=== PATIENT | female | born 1995 | race Caucasian/White ===

== ENCOUNTER 2016-08-10 16:13 | Emergency (ER) | payer BC ==
--- NOTE | 2016-08-10 16:25 | CPEKG ---
Heart Rate: 78 RR Interval: 769 P-R Interval: 116 QRSD Interval: 80 QT Interval: 364 QTC Interval: 415 P [place]: 53 QRS [place]: 60 T Wave [place]: 31 EKG Severity - NORMAL ECG - EKG Impression: SINUS RHYTHM Electronically Signed By: Shanita Prince 11-Aug-2016 00:40:43
[2016-08-10 16:44] LABS: % IMMATURE GRANULYOCYTES 0.4 % (0.0-1.1); ABSOLUTE IMMATURE GRANULOCYTES 0.06 10^3/uL (0.00-0.10); ADD DIFF? NO; ADD MORPH? NO; ADD SCAN? NO; ATYPICAL LYMPHOCYTE FLAG 0 (0-99); FRAGMENT RBC FLAG 0 (0-99); HEMATOCRIT 40.5 % (38.0-47.0); LEFT SHIFT FLG 0 (0-99); LIPEMIA HEMOLYSIS FLAG 90 (0-99); MEAN CELL HEMOGLOBIN 31.9 pg (27.9-34.1); MEAN CELL HEMOGLOBIN CONCENTR. 34.6 g/dL (32.4-36.7); MEAN CELL VOLUME 92.3 fL (81.5-99.8); MEAN PLATELET VOLUME 10.3 fL (8.7-11.7); PLATELET CLUMPS FLAG 20 (0-99); PLATELET COUNT 272 10^3/uL (150-400); RED BLOOD CELL COUNT 4.39 10^6/uL (4.18-5.33); RED CELL DISTRIBUTION WIDTH 11.7 % (11.5-15.2)
--- NOTE | 2016-08-10 16:45 | EDPHY ---
H & P Stated Complaint: Left sided chest pain since 1pm today, and SOB. Just got off a plane. - Personal History LMP (Females 10-55): Over 28 Days Ago Current Tetanus Diphtheria and Acellular Pertussis (TDAP): Yes - Medical/Surgical History Hx Asthma: No Hx Chronic Respiratory Disease: No Hx Diabetes: No Hx Cardiac Disease: No Hx Renal Disease: No Hx Cirrhosis: No Hx Alcoholism: No Hx HIV/AIDS: No Hx Splenectomy or Spleen Trauma: No Other PMH: med hx- UTI's. surg-tonsilectomy - Social History Smoking Status: Never smoked Time Seen by Provider: 08/10/16 16:15 HPI/ROS: Chief complaint: Chest pain History of present illness: This is a 21-year-old female who presents to the emergency department for evaluation of chest pain. Patient was in her usual state of health until approximately a few hours ago. Patient was flying on a plane from [place] back to [place] where she lives. While landing she started to develop some left-sided chest pain. She describes a sharp pain. It is worse with movement. She has had associated cough. She denies other associated signs or symptoms including no shortness of breath, no fevers or cold symptoms, no pain or swelling in the legs. She has never had similar. Review of systems: A 10 point review of systems was obtained and other than described above was negative (Martin Delgado) - Physical Exam Exam: General Appearance: Alert, nontoxic. Eyes: Pupils equal and round no pallor or injection. ENT, Mouth: Mucous membranes moist. Respiratory: There are no retractions, lungs are clear to auscultation. Cardiovascular: Regular rate and rhythm. Gastrointestinal: Abdomen is soft and nontender, no masses, bowel sounds normal. Neurological: Alert and oriented x4. Strength and sensation intact and symmetrical. Skin: Warm and dry, no rashes. Musculoskeletal: There is tenderness over the left superior sternal border at the costosternal joints. I am able to reproduce or pain. Movement does reproduce pain as well. Extremities are symmetrical, full range of motion. No evidence of DVT. Psychiatric: Patient is oriented X 3, there is no agitation. (Martin Delgado) Constitutional: Initial Vital Signs Temperature (C) 36.7 C 08/10/16 16:13 Heart Rate 90 08/10/16 16:13 Respiratory Rate 18 08/10/16 16:13 Blood Pressure 130/87 H 08/10/16 16:13 O2 Sat (%) 100 08/10/16 16:13 O2 Delivery Mode Room Air Allergies/Adverse Reactions: No Known Allergies Allergy (Verified 12/08/13 19:34) Home Medications: Medication Instructions Recorded Bcp 12/08/13 Macrobid 08/10/16 Medical Decision Making - Diagnostics EKG Interpretation: 12-LEAD EKG: Please see the full report in [facility]. My interpretation: Sinus rhythm (Shanita Prince) Imaging Results: Imaging Impressions Chest X-Ray 08/10/16 16:28 IMPRESSION: Normal chest x-ray. ED Course/Re-evaluation: Patient is discussed with my secondary supervising physician Dr. Shanita Prince. Patient presents to the emergency department for evaluation of chest pain. On presentation she is nontoxic. She is afebrile and vital signs are stable. Physical exam does reveal reproducible chest wall pain on palpation of the costosternal joints. Blood studies including D-dimer and troponin are unremarkable. EKG is unremarkable. Chest x-ray is unremarkable. My suspicion for serious underlying pathology such as infection, pneumothorax or PE is low. I do believe this is likely musculoskeletal pain. Patient will be discharged home. Home care is discussed including pain management with ibuprofen. She is asked to follow up with a primary care doctor this week for recheck. Strict return precautions are given. Patient voiced understanding and agreement with plan. (Martin Delgado) Differential Diagnosis: Included but not limited to musculoskeletal pain, reflux, pulmonary infections including pneumonia, pneumothorax, pulmonary embolism, cardiac dysrhythmia, ACS (Martin Delgado) Other Provider: The patient was evaluated and managed by the Physician Window Repairer/ Nurse Practitioner. I discussed the patient's presentation and course with the midlevel provider with them and agree with the evaluation. My co-signature indicates that I have reviewed this chart and I agree with the findings and plan of care as documented. I am the secondary supervising physician. (Shanita Prince) - Data Points Laboratory Results: Laboratory Results 08/10/16 16:30 08/10/16 16:30 08/10/16 08/10/16 08/10/16 16:30 16:30 16:30 WBC RBC Hgb Hct MCV MCH MCHC RDW Plt Count MPV Neut % (Auto) Lymph % (Auto) [place] % (Auto) Eos % (Auto) Baso % (Auto) Nucleat RBC Rel Count Absolute Neuts (auto) Absolute Lymphs (auto) Absolute Monos (auto) Absolute Eos (auto) Absolute Basos (auto) Absolute Nucleated RBC Immature Gran % Immature Gran # D-Dimer < 0.27 ug/mLFEU ug/mLFEU (0.00-0.50) Sodium 140 mEq/L mEq/L (134-144) Potassium 3.9 mEq/L mEq/L (3.5-5.2) Chloride 107 mEq/L mEq/L (97-110) Carbon Dioxide 19 mEq/l L mEq/l (22-31) Anion Gap 14 mEq/L mEq/L (8-16) BUN 7 mg/dL mg/dL (7-23) Creatinine 0.6 mg/dL mg/dL (0.6-1.0) Estimated GFR > 60 Glucose 78 mg/dL mg/dL (70-100) Calcium 9.6 mg/dL mg/dL (8.5-10.4) Troponin I < 0.012 ng/mL ng/mL (0-0.034) Beta HCG, Qual NEGATIVE 08/10/16 16:30 WBC 13.40 10^3/uL H 10^3/uL (3.80-9.50) RBC 4.39 10^6/uL 10^6/uL (4.18-5.33) Hgb 14.0 g/dL g/dL (12.6-16.3) Hct 40.5 % % (38.0-47.0) MCV 92.3 fL fL (81.5-99.8) MCH 31.9 pg pg (27.9-34.1) MCHC 34.6 g/dL g/dL (32.4-36.7) RDW 11.7 % % (11.5-15.2) Plt Count 272 10^3/uL 10^3/uL (150-400) MPV 10.3 fL fL (8.7-11.7) Neut % (Auto) 73.2 % % (39.3-74.2) Lymph % (Auto) 16.6 % % (15.0-45.0) [place] % (Auto) 8.7 % % (4.5-13.0) Eos % (Auto) 0.7 % % (0.6-7.6) Baso % (Auto) 0.4 % % (0.3-1.7) Nucleat RBC Rel Count 0.0 % % (0.0-0.2) Absolute Neuts (auto) 9.82 10^3/uL H 10^3/uL (1.70-6.50) Absolute Lymphs (auto) 2.22 10^3/uL 10^3/uL (1.00-3.00) Absolute Monos (auto) 1.16 10^3/uL H 10^3/uL (0.30-0.80) Absolute Eos (auto) 0.09 10^3/uL 10^3/uL (0.03-0.40) Absolute Basos (auto) 0.05 10^3/uL 10^3/uL (0.02-0.10) Absolute Nucleated RBC 0.00 10^3/uL 10^3/uL (0-0.01) Immature Gran % 0.4 % % (0.0-1.1) Immature Gran # 0.06 10^3/uL 10^3/uL (0.00-0.10) D-Dimer Sodium Potassium Chloride Carbon Dioxide Anion Gap BUN Creatinine Estimated GFR Glucose Calcium Troponin I Beta HCG, Qual Departure - Departure Disposition: Home, Routine, Self-Care Clinical Impression: Chest pain Qualifiers: Chest pain type: unspecified Qualified Code(s): R07.9 - Chest pain, unspecified Condition: Good Instructions: Chest Wall Pain (ED) Additional Instructions: Follow up with a primary care doctor this week for recheck Use ibuprofen 600 mg 3 times a day for the next 2-3 days as needed for pain If symptoms worsen or new symptoms developed return to the emergency room for recheck Referrals: NONE *PRIMARY CARE P,. [Primary Care Provider] - As per Instructions [facility] [Clinic] - As per Instructions Michlele Scott MD [Medical Doctor] - As per Instructions
[2016-08-10 16:54] LABS: ANION GAP 14 mEq/L (8-16); CALCIUM 9.6 mg/dL (8.5-10.4); CARBON DIOXIDE 19 mEq/l (22-31); CHLORIDE 107 mEq/L (97-110); CREATININE 0.6 mg/dL (0.6-1.0); GLOMERULAR FILTRATION RATE > 60; GLUCOSE 78 mg/dL (70-100); POTASSIUM 3.9 mEq/L (3.5-5.2); SODIUM 140 mEq/L (134-144)
[2016-08-10 17:02] VITALS: RESP 20
[2016-08-10 17:05] LABS: TROPONIN I < 0.012 ng/mL (0-0.034)
[2016-08-10 17:24] VITALS: BP 121/81; PULSE 83; TEMP 98.4; O2SAT 97
== END 2016-08-10 17:25 | disposition home or self-care (01) ==
DX: R07.9 Chest pain, unspecified (principal)